=== PATIENT | male | born 1995 | race Two or more races ===

== ENCOUNTER 2025-04-25 23:31 | Emergency (ER) | payer SELFPAY ==
[~2025-04-25] VITALS: Ht 167.6 cm; Wt 106.8 kg
[2025-04-25 23:32] VITALS: BP 158/93; PULSE 88; RESP 16; TEMP 97.5; O2SAT 96
== END 2025-04-26 01:35 | disposition left against medical advice (07) ==
LOC: ER 23:31
DX: R04.2 Hemoptysis (principal); Z53.21 Procedure and treatment not carried out due to patient leaving prior to being seen by health care provider